=== PATIENT | female | born 1945 | race African-American/Black ===

== ENCOUNTER 2018-08-26 13:53 | Outpatient (CLI) | payer MEDICARE ==
--- NOTE | 2018-08-26 15:20 | RAD ---
PA AND LATERAL CHEST RADIOGRAPH: Date: 08-26-18 History: Flu. Comparison: 10-09-16 FINDINGS: Cardiac silhouette and pulmonary vasculature are within normal limits. The lungs are clear. Degenerat veronica changes are again present in the thoracic spine. There is prominence in the right hilar region. T his is stable compared to the study on 11-27-15 as well as the study in 2017 probably related to promin ence of the pulmonary artery segment. No other interval change. IMPRESSION: No acute cardiopulmonary process. POS: [facility]
== END 2018-08-26 13:54 | disposition home or self-care (01) ==
LOC: MADRAD 13:53
PROVIDERS: ATTEND Physician Assistant
DX: J11.1 Influenza due to unidentified influenza virus with other respiratory manifestations (principal)
CPT/HCPCS: 71046

== ENCOUNTER 2020-03-16 09:25 | Outpatient (CLI) | payer MEDICARE ==
--- NOTE | 2020-03-16 09:47 | RAD ---
Exam: Lumbar spine 3 views HISTORY: Pain. FINDINGS: 5 lumbar type vertebra. Lumbar spine vertebral body heights are maintained. No fracture Vacuum disc phenomenon at L4-L5 and L5-S1 No spondylolisthesis or spondylolysis. Straightening of normal lumbar lordosis may be positional Mild loss of disc space height is 5 formation at L3-L4. IMPRESSION: 1. No fracture 2. Degenerative disc disease at L4-L5 and L5-S1 with vacuum disc phenomenon. Better interrogation wit h MRI may be beneficial.
== END 2020-03-16 09:26 | disposition home or self-care (01) ==
LOC: MADRAD 09:25
PROVIDERS: ATTEND Physician Assistant
DX: M54.5 Low back pain (principal); M51.36 Other intervertebral disc degeneration, lumbar region; M51.37 Other intervertebral disc degeneration, lumbosacral region
CPT/HCPCS: 72100

== ENCOUNTER 2020-10-04 11:58 | Outpatient (CLI) | payer MEDICARE | END 2020-10-04 11:59 | disposition home or self-care (01) | LOC: MADRAD 11:58 | PROVIDERS: ATTEND Physician Assistant | DX: J45.21 Mild intermittent asthma with (acute) exacerbation (principal); R91.8 Other nonspecific abnormal finding of lung field | CPT/HCPCS: 71046 ==

== ENCOUNTER 2020-10-10 10:47 | Outpatient (CLI) | payer MEDICARE | END 2020-10-10 10:48 | disposition home or self-care (01) | LOC: MADRAD 10:47 | PROVIDERS: ATTEND Physician Assistant | DX: R06.2 Wheezing (principal) | CPT/HCPCS: 71046 ==